=== PATIENT | female | born 1985 | race Two or more races ===

== ENCOUNTER 2024-01-04 22:19 | Emergency (ER) | payer MEDICAID, OTHER | END 2024-01-04 23:56 | disposition left against medical advice (07) | LOC: ER 22:19 | DX: R10.9 Unspecified abdominal pain (principal); Z53.21 Procedure and treatment not carried out due to patient leaving prior to being seen by health care provider ==

== ENCOUNTER 2024-01-07 21:54 | Emergency (ER) | payer MEDICAID ==
[~2024-01-07] VITALS: Ht 160 cm; Wt 63.0 kg
[2024-01-07 23:03] LABS: Basophils # (auto) 0.1 10 ^3/uL (0-0.2); Basophils % (auto) 0.8 % (0.0-2.0); Eosinophils # (auto) 0.1 10 ^3/uL (0-0.8); Eosinophils % (auto) 0.8 % (0.0-7.0); Hematocrit 43.2 % (36.0-46.0); Hemoglobin 14.5 g/dL (12.2-16.2); Lymphocytes # (auto) 2.8 10 ^3/uL (0.4-5.4); Mean Corpuscular Hemoglobin 30.3 pg (28.0-32.0); Mean Corpuscular Hgb Conc. 33.6 g/dL (32.0-36.0); Mean Corpuscular Volume 90.1 fL (80.0-100.0); Monocytes # (auto) 0.4 10 ^3/uL (0-1.3); Monocytes % (auto) 5.4 % (0.0-12.0); Neutrophils # (auto) 4.3 10 ^3/uL (1.6-8.6); Nucleated Red Blood Cells % 0.2 %; Red Cell Distribution Width 13.6 % (11.8-14.3); White Blood Cell 7.7 10^3/uL (4.4-10.8)
[2024-01-08] MEDS: MORPHINE SULFATE 4 MG/ML SYR/VIAL ONE (00:24)
[2024-01-08] MEDS: MORPHINE SULFATE INJ 2 MG/ml SYRG IM ONE (00:30)
[2024-01-08] MEDS: LIDOCAINE VISCOUS 2% 15ML UD ONE (00:30)
[2024-01-08] MEDS: MAALOX PLUS or MAALOX 30 ML ONE (00:30)
[2024-01-08] MEDS: DONNATAL 5ml ORAL Elix (BELLADONNA ALK-PHENOBARB) ONE (00:30)
[2024-01-08] MEDS: MAALOX PLUS or MAALOX 30 ML PO ONE (00:35)
[2024-01-08] MEDS: DONNATAL 5ml ORAL Elix (BELLADONNA ALK-PHENOBARB) PO ONE (00:35)
[2024-01-08] MEDS: LIDOCAINE VISCOUS 2% 15ML UD PO ONE (00:35)
[2024-01-08 01:04] LABS: Alanine Aminotransferase 910 U/L (7-40); Albumin 4.9 g/dL (3.2-4.8); Alkaline Phosphatase 222 U/L (46-116); Anion Gap 10 (5-15); Aspartate Aminotransferase 1122 U/L (13-40); BUN/Creatinine Ratio 10.3 (10.0-20.0); Bilirubin, Total 1.8 mg/dL (0.2-1.0); Blood Urea Nitrogen 9 mg/dL (9-23); Calcium 10.4 mg/dL (8.7-10.4); Carbon Dioxide 26 mmol/L (20-30); Chloride 102 mmol/L (98-107); Glucose 117 mg/dL (74-106); Lipase 53 U/L (12-53); Potassium 3.7 mmol/L (3.5-5.1); Sodium 138 mmol/L (136-145); Total Protein 7.9 g/dL (5.7-8.2)
[2024-01-08 01:30] VITALS: PULSE 87; RESP 17; O2SAT 94
[2024-01-08] MEDS: cefTRIAXone 1GM/50ML D5W 50 ML IV ONE (01:52)
[2024-01-08 02:08] LABS: Urine Bacteria MANY /hpf (None Seen); Urine Blood Negative /uL (Negative); Urine Clarity Clear (Clear); Urine Color Yellow (Yellow); Urine Protein, UAD Negative (Negative); Urine Specific Gravity 1.007 (1.001-1.035); Urine Urobilinogen 4 mg/dL (Negative); Urine WBC 1 /hpf (0 - 5); Urine pH 7.5 (5.0-9.0)
[2024-01-08] MEDS: metroNIDAZOLE 500MG/100ML 100 ML IV ONE (02:43)
[2024-01-08 04:45] VITALS: BP 104/67; PULSE 87; RESP 17; TEMP 97.9; O2SAT 94
== END 2024-01-08 05:07 | disposition short-term general hospital (02) ==
LOC: ER 21:54
DX: K80.51 Calculus of bile duct without cholangitis or cholecystitis with obstruction (principal); Z90.49 Acquired absence of other specified parts of digestive tract
CPT/HCPCS: 36415; 74176; 76705; 80053; 81001; 83690; 85025; 96365; 96367; 96372; 99285; J0696; J2270; J3490

== ENCOUNTER 2025-05-08 20:51 | Inpatient (IN) | payer MEDICAID ==
[~2025-05-08] VITALS: Ht 165.1 cm; Wt 72.4 kg
[2025-05-08 21:41] LABS: Hematocrit 43.5 % (36.0-46.0); Hemoglobin 15.1 g/dL (12.2-16.2); Mean Corpuscular Hemoglobin 30.7 pg (28.0-32.0); Mean Corpuscular Volume 88.5 fL (80.0-100.0); Nucleated Red Blood Cells % 0.0 %
[2025-05-08 21:45] LABS: Chloride 103 mmol/L (98-107); Potassium 3.5 mmol/L (3.5-5.1); Sodium 140 mmol/L (136-145)
[2025-05-08 21:46] LABS: Anion Gap 10 (5-15); Calcium 9.7 mg/dL (8.7-10.4); Carbon Dioxide 27 mmol/L (20-31)
[2025-05-08 21:51] LABS: BUN/Creatinine Ratio 8.6 (10.0-20.0); Glucose 103 mg/dL (74-106)
[2025-05-08 21:52] LABS: Blood Urea Nitrogen 6 mg/dL (9-23)
--- NOTE | 2025-05-08 22:20 | ED.PDOC ---
History of Present Illness HPI Comments 40 y/o Algerian speaking F, with a history of cholelithiasis s/p cholecystectomy, presents with spouse for c/c of nonradiating, RUQ abdominal pain. Patient reports on progressively worsening symptoms following initial, unprovoked and atraumatic onset 2 hours ago. No reported modifiers. No recent previous ailments, sick contact, spoiled food consumption, or further associated symptoms. Denial of any nausea, vomiting, diarrhea, fever, chills, or further associated symptoms. Chief Complaint: Abdominal Pain Time Seen by MD: 21:00 Reviewed Notes: Nurses Notes, Medications, Allergies Allergies: Coded Allergies: NO KNOWN ALLERGIES (Unverified , 01/07/24) Information Source: Patient Mode of Arrival: Ambulatory Severity: Moderate Timing: Hours Duration: Since onset Prehospital treatment: None Past Medical History PAST MEDICAL HISTORY: Gallstones Surgical History: Cholecystectomy Social History Smoker: Non-Smoker Alcohol: Denies ETOH Use Drugs: Denies Drug Use Lives In: Home All Other Systems: Reviewed and Negative (Comprehensive systems review obtained and negative except for what is stated in the HPI.) Physical Exam General Appearance: Moderate Distress HEENT: Normal ENT Inspection, Pharynx Normal, TMs Normal Neck: Full Range of Motion, Non-Tender, Normal, Normal Inspection Respiratory: Chest Non-Tender, Lungs Clear, No Accessory Muscle Use, No Respiratory Distress, Normal Breath Sounds Cardiovascular: No Edema, No JVD, No Murmur, No Gallop, Normal Peripheral Pulses, Regular Rate/Rhythm Breast Exam: Deferred Gastrointestinal: No Organomegaly, Non Tender, No Pulsatile Mass, Normal Bowel Sounds, Soft Genitalia: Deferred Pelvic: Deferred Rectal: Deferred Extremities: No calf tenderness, Normal capillary refill, Normal inspection, Normal range of motion, Non-tender, No pedal edema Musculoskeletal : Apperance: Normal Neurologic: Alert, manager search II-XII nml as Tested, No Motor Deficits, Normal Affect, Normal Mood, No Sensory Deficits Cerebellar Function: Normal Reflexes: Normal Skin: Dry, Normal Color, Warm Peripheral Pulses: 3+ Radial (R), 3+ Radial (L) Lymphatic: No Adenopathy Was a procedure done? Was a procedure done?: No Differential Dx Considerations may include: cholelithiasis, gastritis, gastroenteritis, GERD, viral syndrome, spoiled food, , among others X-Ray, Labs, Meds, VS Vital Signs Date Time Temp Pulse Resp B/P (MAP) Pulse Ox O2 Delivery O2 Flow Rate FiO2 05/08/25 23:01 97.6 111 20 116/85 (95) 97 97.6 05/08/25 23:01 111 20 97 Room Air 05/08/25 20:51 97.0 112 18 126/92 100 97.0 Lab Test 05/08/25 21:15 Range/Units White Blood Count 16.2 H 4.4-10.8 10^3/uL Red Blood Count 4.92 4.0-5.20 10^6/uL Hemoglobin 15.1 12.2-16.2 g/dL Hematocrit 43.5 36.0-46.0 % Mean Corpuscular Volume 88.5 80.0-100.0 fL Mean Corpuscular Hemoglobin 30.7 28.0-32.0 pg Mean Corpuscular Hemoglobin Concent 34.7 32.0-36.0 g/dL Red Cell Distribution Width 12.9 11.8-14.3 % Platelet Count 371 140-450 10^3/uL Mean Platelet Volume 7.3 6.9-10.8 fL Neutrophils (%) (Auto) 77.6 37.0-80.0 % Lymphocytes (%) (Auto) 16.3 10.0-50.0 % Monocytes (%) (Auto) 5.6 0.0-12.0 % Eosinophils (%) (Auto) 0.2 0.0-7.0 % Basophils (%) (Auto) 0.3 0.0-2.0 % Neutrophils # (Auto) 12.6 H 1.6-8.6 10 ^3/uL Lymphocytes # (Auto) 2.6 0.4-5.4 10 ^3/uL Monocytes # (Auto) 0.9 0-1.3 10 ^3/uL Eosinophils # (Auto) 0 0-0.8 10 ^3/uL Basophils # (Auto) 0 0-0.2 10 ^3/uL Nucleated Red Blood Cells 0.0 % Sodium Level 140 136-145 mmol/L Potassium Level 3.5 3.5-5.1 mmol/L Chloride Level 103 98-107 mmol/L Carbon Dioxide Level 27 20-31 mmol/L Anion Gap 10 5-15 Blood Urea Nitrogen 6 L 9-23 mg/dL Creatinine 0.70 0.550-1.02 mg/dL Glomerular Filtration Rate Calc 113 >90 mL/min BUN/Creatinine Ratio 8.6 L 10.0-20.0 Serum Glucose 103 74-106 mg/dL Calcium Level 9.7 8.7-10.4 mg/dL Current Medications Medications (Trade) Dose Ordered Sig/Matthew Route Start Time Stop Time Status Last Admin Sodium Chloride 1,000 ml @ 1,000 mls/hr Q1H ONCE IV 05/08/25 22:45 05/08/25 23:44 DC 05/08/25 22:45 [place] [id number] Ph: [phone] DIAGNOSTIC IMAGING Diagnostic Imaging Report : [id number] Signed PATIENT: JESI DELAROSA ACCT: [id number] UNIT: [id number] : 1985 [facility] AGE / SEX: 40 / F ADM STATUS: ADM IN SERVICE 33 ORDERING PHYSICIAN: BECKA KURTZ MD PROCEDURE(s): ABPL - CT AB PEL WO CON-NO ORAL OR IV REASON: colitis ORDER NUMBER(s): [id number], ACCESSION NUMBER(s): [id number] Exam: CT CT AB PEL WO CON-NO ORAL OR IV History: colitis Comparison Study: CT CT AB PEL WO CON-NO ORAL OR IV on DOS: 01/07/24 Technique: Multidetector spiral CT of the abdomen was performed from lung bases to pubic symphysis. Imaging was performed without IV contrast. Axial, coronal and sagittal multiplanar reformats were obtained from the axial data set by the technologist. Radiation Dose : 1. Abdomen/Pelvis: CTDIvol 8.34 mGy, DLP 513.88 mGy*cm. Findings: Evaluation of solid organs is limited due to lack of intravenous contrast use. Lower Chest: No acute findings. Liver: Diffuse hypoattenuation. Gallbladder and Biliary Tree: Cholecystectomy changes. Pancreas: Unremarkable. Spleen: Unremarkable. Adrenal Glands: Unremarkable. Kidneys/Ureters: No urinary stone or obstruction. Bladder: Grossly unremarkable for degree of distention. Pelvic Organs: Unremarkable Bowel: Normal caliber without wall thickening. No evidence of appendicitis. Vasculature: Unremarkable. Lymphadenopathy: No obvious adenopathy. Peritoneum: No ascites, free air, or fluid collection. Abdominal Wall: Abdominoplasty postsurgical change. Partially imaged breast implants. Bilateral flank injection granulomas. Musculoskeletal: No acute findings. Mild degenerative change of the spine. IMPRESSION: 1. No acute abdominopelvic abnormality, evidence of urinary stone or obstruction. 2. Hepatic steatosis. Radiation optimization: All CT scans at this facility use at least one of these dose optimization techniques: automated exposure control mA and/or kV adjus tment per patient size (includes targeted exams where dose is matched to clinical indication) or iterative reconstruction. ATED BY: ALIZA CARTER MD DICTATED DATE/TIME: 05/09/2525 SIGNED BY: ALIZA CARTER MD SIGNED DATE/TIME: 05/09/2525 CC: Patient alert. Came in because of abdominal pain. Vitals stable. Answering questions. Abdomen is soft tender on deep palpation. WBC elevated. Hemoglobin within normal limits. Tachycardia. No leg swelling. No shortness a breath. Explained to the patient. Continue monitoring. Time of 1ST Reevaluation: 21:30 Reevaluation 1ST: Unchanged Patient Education/Counseling: Diagnosis, Treatment Family Education/Counseling: Diagnosis, Treatment SEPSIS Sepsis Screen Date sepsis recognized/suspect: May 08, 2025 Time Sepsis recognized/suspect: 2053 Recent Procedure: No On Antibiotic Therapy: No Respiratory Rate >20: No Heart Rate >90: Yes Temp<36 C (96.8 F) or >38.3 C: No SBP <90 or MAP <65 mmHG: No New Acute Mental Status Change: No Is the patient on CPAP, BIPAP,: No Physician Orders Urinalysis (05/08/25 21:06) Ct Ab Pel Wo Con-No Oral Or Iv (05/08/25 22:34) Vital Signs Date Time Temp Pulse Resp B/P (MAP) Pulse Ox O2 Delivery O2 Flow Rate FiO2 05/08/25 23:01 97.6 111 20 116/85 (95) 97 97.6 05/08/25 23:01 111 20 97 Room Air 05/08/25 20:51 97.0 112 18 126/92 100 97.0 Laboratory Tests Test 05/08/25 21:15 White Blood Count 16.2 10^3/uL (4.4-10.8) H Medications Medications Dose Ordered Sig/Matthew Route Start Time Stop Time Status Last Admin Dose Admin Sodium Chloride 1,000 ml @ 1,000 mls/hr Q1H ONCE IV 05/08/25 22:45 05/08/25 23:44 DC 05/08/25 22:45 Departure 1 Departure Time of Disposition: 22:33 Impression: Primary Impression: Acute abdominal pain Disposition: ADMITTED INPATIENT Admit to: Med Surg Condition: Guarded Critical Care Note Critical Care Time?: No Stability Stability form required: No Heart Score Heart Score: Heart Score Response (Comments) Value History N/A 0 EKG N/A 0 Age N/A 0 Risk Factors N/A 0 Troponin N/A 0 Total 0 I personally scribed for BECKA KURTZ MD ([email or web address]) on 05/08/25 at 22:19. Electronically submitted by Soham Harrell ([email or web address]). I personally scribed for BECKA KURTZ MD ([email or web address]) on 05/09/25 at 02:12. Electronically submitted by Soham Harrell ([email or web address]). I personally scribed for BECKA KURTZ MD ([email or web address]) on 05/09/25 at 02:12. Electronically submitted by Soham Harrell ([email or web address]). BECKA KURTZ MD May 08, 2025 22:19
[2025-05-08] MEDS: SODIUM CHLORIDE 0.9% 1,000 ML IV ONE (22:45)
[2025-05-09] MEDS ORDERED: ACETAMINOPHEN 325 MG TAB PO PRN
[2025-05-09] MEDS ORDERED: ONDANSETRON HCL 4 MG/2 ML VIAL IV PRN
[2025-05-09] MEDS ORDERED: NITROGLYCERIN 0.4 MG SL TAB SL PRN
[2025-05-09] MEDS ORDERED: PANTOPRAZOLE 40 MG/10 ML VIAL INJ IV ONE
[2025-05-09] MEDS ORDERED: DOCUSATE SOD 100 MG CAP PO PRN
[2025-05-09] MEDS ORDERED: MORPHINE SULFATE INJ 2 MG/ml SYRG IV PRN ×2
--- NOTE | 2025-05-09 00:01 | DVHHP2 ---
History of Present Illness Reason for Visit: Acute abdominal pain History of Present Illness The patient is a 40-year-old female with past medical history of gallstones who presented to [facility] ED with complaint of abdominal pain for the past 3 days. Patient reports she has been experiencing right upper quadrant abdominal pain, rating 8/10 numeric scale, nonradiating, getting worse that prompted this visit. Patient was seen and evaluated in the ED, laboratory data shows WBC 16.2, platelets 371, sodium 140, potassium 3.5, BUN 6, creatinine 0.70, glucose 103, calcium 9.7, blood pressure 116/85, heart rate 112, temperature 97.6 F, O2 saturation 97% on room air. Abdomen/pelvis CT showed no acute abdominopelvic abnormality, no evidence of urinary stone or obstruction; hepatic steatosis. Please see medication orders section in the computer. On my assessment, patient denied chest pain, no headache, no shortness of breaths, no abdominal pain at this moment, no diarrhea, no nausea, vomiting, no fever, no chills. Patient was admitted for further evaluation and medical management. Past Medical History Gallstones Past Surgical History Cholecystectomy Family History Reviewed, noncontributory to the management of this case. Past Social History The patient lives at home, denies smoking, alcohol or illicit drugs abuse. Review of Systems Constitutional: Yes: Weakness; No: Fever, Chills, Sweats, Malaise, Other Eyes: No: Pain, Vision change, Conjunctivae inflammation, Eyelid inflammation, Other, Redness ENT: No: Ear pain, Ear discharge, Nose pain, Nose discharge, Nose congestion, Mouth pain, Mouth swelling, Throat pain, Throat swelling, Other Respiratory: No: Cough, Dry, Shortness of breath, SOB with excertion, Wheezing, Hemoptysis, Pleuritic Pain, Sputum, Wheezing, Other Cardiovascular: No: Chest Pain, Palpitations, Orthopnea, Paroxysmal Noc. Dyspnea, Edema, Lt Headedness, Other Gastrointestinal: Abdominal Pain; No: Nausea, Vomiting, Diarrhea, Constipation, Melena, Hematochezia, Other Genitourinary: No Dysuria, No Frequency, No Incontinence, No Hematuria, No Retention, No Other Musculoskeletal: No: other, neck pain, shoulder pain, arm pain, back pain, hand pain, leg pain, foot pain Skin: No: Rash, Lesions, Jaundice, Bruising, Other Neurological: No: Weakness, Numbness, Incoordination, Change in speech, Confusion, Seizures, Other Allergies: Coded Allergies: NO KNOWN ALLERGIES (Unverified , 01/07/24) Exam Vital Signs Vital Signs Date Time Temp Pulse Resp B/P (MAP) Pulse Ox O2 Delivery O2 Flow Rate FiO2 05/08/25 23:01 97.6 111 20 116/85 (95) 97 97.6 05/08/25 23:01 Room Air General Appearance: Alert, Oriented X3, Cooperative, No acute distress HEENT: Atraumatic, PERRLA, EOMI, Mucous membr. moist/pink Respiratory: Clear to auscultation, Normal air movement Cardiovascular: Regular rate, Normal S1, Normal S2, No murmurs Abdominal: Normal bowel sounds, Soft, No hepatospenomegaly, No masses, Other (Reports tenderness) Extremities: No clubbing, No cyanosis, No edema, Normal pulses, No tenderness/swelling Skin: No rashes, No breakdown, No significant lesion Neuro: Normal gait, Normal speech, Strength at 5/5 X4 ext, Normal tone, Sensation intact, Cranial nerves 3-12 NL, Reflexes 2+ Psych/Mental Status: Mental status NL, Mood NL Labs/Xrays Labs Test 05/08/25 21:15 Range/Units White Blood Count 16.2 H 4.4-10.8 10^3/uL Red Blood Count 4.92 4.0-5.20 10^6/uL Hemoglobin 15.1 12.2-16.2 g/dL Hematocrit 43.5 36.0-46.0 % Mean Corpuscular Volume 88.5 80.0-100.0 fL Mean Corpuscular Hemoglobin 30.7 28.0-32.0 pg Mean Corpuscular Hemoglobin Concent 34.7 32.0-36.0 g/dL Red Cell Distribution Width 12.9 11.8-14.3 % Platelet Count 371 140-450 10^3/uL Mean Platelet Volume 7.3 6.9-10.8 fL Neutrophils (%) (Auto) 77.6 37.0-80.0 % Lymphocytes (%) (Auto) 16.3 10.0-50.0 % Monocytes (%) (Auto) 5.6 0.0-12.0 % Eosinophils (%) (Auto) 0.2 0.0-7.0 % Basophils (%) (Auto) 0.3 0.0-2.0 % Neutrophils # (Auto) 12.6 H 1.6-8.6 10 ^3/uL Lymphocytes # (Auto) 2.6 0.4-5.4 10 ^3/uL Monocytes # (Auto) 0.9 0-1.3 10 ^3/uL Eosinophils # (Auto) 0 0-0.8 10 ^3/uL Basophils # (Auto) 0 0-0.2 10 ^3/uL Nucleated Red Blood Cells 0.0 % Sodium Level 140 136-145 mmol/L Potassium Level 3.5 3.5-5.1 mmol/L Chloride Level 103 98-107 mmol/L Carbon Dioxide Level 27 20-31 mmol/L Anion Gap 10 5-15 Blood Urea Nitrogen 6 L 9-23 mg/dL Creatinine 0.70 0.550-1.02 mg/dL Glomerular Filtration Rate Calc 113 >90 mL/min BUN/Creatinine Ratio 8.6 L 10.0-20.0 Serum Glucose 103 74-106 mg/dL Calcium Level 9.7 8.7-10.4 mg/dL PATIENT: JESI DELAROSA ACCT: [id number] UNIT: [id number] : 1985 LOC: OVERFLOW ROOM / BED: [address] [place] [address] / A AGE / SEX: 40 / F ADM STATUS: ADM IN SERVICE 2234 ORDERING PHYSICIAN: BECKA KURTZ MD PROCEDURE(s): ABPL - CT AB PEL WO CON-NO ORAL OR IV REASON: colitis ORDER NUMBER(s): [id number], ACCESSION NUMBER(s): [id number] Exam: CT CT AB PEL WO CON-NO ORAL OR IV History: colitis Comparison Study: CT CT AB PEL WO CON-NO ORAL OR IV on DOS: 01/07/24 Technique: Multidetector spiral CT of the abdomen was performed from lung bases to pubic symphysis. Imaging was performed without IV contrast. Axial, coronal and sagittal multiplanar reformats were obtained from the axial data set by the technologist. Radiation Dose: 1. Abdomen/Pelvis: CTDIvol 8.34 mGy, DLP 513.88 mGy*cm. Findings: Evaluation of solid organs is limited due to lack of intravenous contrast use. Lower Chest: No acute findings. Liver: Diffuse hypoattenuation. Gallbladder and Biliary Tree: Cholecystectomy changes. Pancreas: Unremarkable. Spleen: Unremarkable. Adrenal Glands: Unremarkable. Kidneys/Ureters: No urinary stone or obstruction. Bladder: Grossly unremarkable for degree of distention. Pelvic Organs: Unremarkable Bowel: Normal caliber without wall thickening. No evidence of appendicitis. Vasculature: Unremarkable. Lymphadenopathy: No obvious adenopathy. Peritoneum: No ascites, free air, or fluid collection. Abdominal Wall: Abdominoplasty postsurgical change. Partially imaged breast implants. Bilateral flank injection granulomas. Musculoskeletal: No acute findings. Mild degenerative change of the spine. IMPRESSION: 1. No acute abdominopelvic abnormality, evidence of urinary stone or obstruction. 2. Hepatic steatosis. SEPSIS Sepsis Screen Date sepsis recognized/suspect: May 08, 2025 Time Sepsis recognized/suspect: 2302 Recent Procedure: No On Antibiotic Therapy: No Respiratory Rate >20: No Heart Rate >90: Yes Temp<36 C (96.8 F) or >38.3 C: No SBP <90 or MAP <65 mmHG: No New Acute Mental Status Change: No Is the patient on CPAP, BIPAP,: No Physician Orders Urinalysis (05/08/25 21:06) Ct Ab Pel Wo Con-No Oral Or Iv (05/08/25 22:34) Vital Signs Date Time Temp Pulse Resp B/P (MAP) Pulse Ox O2 Delivery O2 Flow Rate FiO2 05/08/25 23:01 97.6 111 20 116/85 (95) 97 97.6 05/08/25 23:01 111 20 97 Room Air 05/08/25 20:51 97.0 112 18 126/92 100 97.0 Laboratory Tests Test 05/08/25 21:15 White Blood Count 16.2 10^3/uL (4.4-10.8) H Medications Medications Dose Ordered Sig/Matthew Route Start Time Stop Time Status Last Admin Dose Admin Sodium Chloride 1,000 ml @ 1,000 mls/hr Q1H ONCE IV 05/08/25 22:45 05/08/25 23:44 DC 05/08/25 22:45 1,000 MLS/HR Assessment/Plan Assessment/Plan Acute abdominal pain Leukocytosis, unspecified Generalized weakness Plan 1. Admit to med surge unit 2. Breathing treatment 3. Pain control management 4. IV antibiotic management 5. Management of fluids and electrolytes 6. Consultation for hospitalist 7. Diagnostic test abdomen/pelvis CT 8. DVT prophylaxis on SCDs 9. Repeat labs CBC, CMP in a.m. 10. Home medication reviewed and reconciled 11. Continue with current medical management 12. Treatment plan discussed with patient and RN. Patient verbalized understanding. Plan discussed with: Patient, Other (RN) Problem List: (1) Acute abdominal pain (2) Leukocytosis, unspecified (3) Generalized weakness Date of Service: May 09, 2025 Billing Provider: ROXANNA GOLDBERG DNP Common Visit Codes: [id number] INP/OBS CARE (HIGH) ROXANNA GOLDBERG DNP May 09, 2025 00:01
--- NOTE | 2025-05-09 00:28 | DVH ---
8 Exam: CT CT AB PEL WO CON-NO ORAL OR IV History: colitis Comparison Study: CT CT AB PEL WO CON-NO ORAL OR IV on DOS: 01/07/24 Technique: Multidetector spiral CT of the abdomen was performed from lung bases to pubic symphysis. I maging was performed without IV contrast. Axial, coronal and sagittal multiplanar reformats were obta ined from the axial data set by the technologist. Radiation Dose : 1. Abdomen/Pelvis: CTDIvol 8.34 mGy, DLP 513.88 mGy*cm. Findings: Evaluation of solid organs is limited due to lack of intravenous contrast use. Lower Chest: No acute findings. Liver: Diffuse hypoattenuation. Gallbladder and Biliary Tree: Cholecystectomy changes. Pancreas: Unremarkable. Spleen: Unremarkable. Adrenal Glands: Unremarkable. Kidneys/Ureters: No urinary stone or obstruction. Bladder: Grossly unremarkable for degree of distention. Pelvic Organs: Unremarkable Bowel: Normal caliber without wall thickening. No evidence of appendicitis. Vasculature: Unremarkable. Lymphadenopathy: No obvious adenopathy. Peritoneum: No ascites, free air, or fluid collection. Abdominal Wall: Abdominoplasty postsurgical change. Partially imaged breast implants. Bilateral flan k injection granulomas. Musculoskeletal: No acute findings. Mild degenerative change of the spine. IMPRESSION: 1. No acute abdominopelvic abnormality, evidence of urinary stone or obstruction. 2. Hepatic steatosis. Radiation optimization: All CT scans at this facility use at least one of these dose optimization evens hniques: automated exposure control mA and/or kV adjustment per patient size (includes targeted exam s where dose is matched to clinical indication) or iterative reconstruction.
[2025-05-09 01:45] VITALS: BP 125/89; PULSE 100; RESP 18; TEMP 97.7; O2SAT 99
[2025-05-09] MEDS: HYDROcodone-ACET 5/325MG TAB PO PRN (02:17)
[2025-05-09] MEDS: PANTOPRAZOLE 40 MG/10 ML VIAL INJ IV ONE (02:18)
[2025-05-09] MEDS: SODIUM CHLORIDE 0.9% 1,000 ML IV SCH (02:18)
[2025-05-09 05:00] VITALS: BP 103/71; PULSE 79; RESP 17; TEMP 98.2; O2SAT 100
[2025-05-09 08:52] VITALS: BP 103/66; PULSE 76; RESP 14; TEMP 98; O2SAT 97
[2025-05-09] MEDS: PANTOPRAZOLE 40 MG/10 ML VIAL INJ IV SCH (09:51)
[2025-05-09 09:55] LABS: Hematocrit 40.1 % (36.0-46.0); Hemoglobin 13.8 g/dL (12.2-16.2); Mean Corpuscular Hemoglobin 30.6 pg (28.0-32.0); Mean Corpuscular Volume 88.7 fL (80.0-100.0); Nucleated Red Blood Cells % 0.0 %
[2025-05-09 10:10] LABS: Albumin 4.5 g/dL (3.2-4.8); Anion Gap 11 (5-15); BUN/Creatinine Ratio 12.5 (10.0-20.0); Bilirubin, Total 1.0 mg/dL (0.2-1.0); Calcium 8.8 mg/dL (8.7-10.4); Carbon Dioxide 25 mmol/L (20-31); Chloride 106 mmol/L (98-107); Glucose 88 mg/dL (74-106); Sodium 142 mmol/L (136-145); Total Protein 7.3 g/dL (5.7-8.2)
[2025-05-09 10:11] LABS: Alanine Aminotransferase 459 U/L (7-40); Alkaline Phosphatase 146 U/L (46-116); Blood Urea Nitrogen 8 mg/dL (9-23); Potassium 3.3 mmol/L (3.5-5.1)
[2025-05-09 13:00] VITALS: BP 97/60; PULSE 74; RESP 16; TEMP 98.6; O2SAT 99
--- NOTE | 2025-05-09 15:31 | DVHPN2 ---
Subjective I am assuming the care of the patient from today onwards who was under the care of the hospitalist team. Patient is currently denies any right upper quadrant pain. Changes from previous H/P or p: No Changes Eyes: No Pain, No Vision change, No Conjunctivae inflammation, No Eyelid inflammation, No Other, No Redness ENT: No Ear pain, No Ear discharge, No Nose pain, No Nose discharge, No Nose congestion, No Mouth pain, No Mouth swelling, No Throat pain, No Throat swelling, No Other Cardiovascular: No Chest Pain, No Palpitations, No Orthopnea, No Paroxysmal Noc. Dyspnea, No Edema, No Lt Headedness, No Other Respiratory: No Cough, No Dry, No Shortness of breath, No SOB with excertion, No Wheezing, No Hemoptysis, No Pleuritic Pain, No Sputum, No Other Gastrointestinal: No Nausea, No Vomiting; Abdominal Pain; No Diarrhea, No Constipation, No Melena, No Hematochezia, No Other Genitourinary: No Dysuria, No Frequency, No Incontinence, No Hematuria, No Retention, No Other Musculoskeletal: No other, No neck pain, No shoulder pain, No arm pain, No back pain, No hand pain, No leg pain, No foot pain Skin: No Rash, No Lesions, No Jaundice, No Bruising, No Other Objective Vitals Vital Signs Date Time Temp Pulse Resp B/P (MAP) Pulse Ox O2 Delivery O2 Flow Rate FiO2 05/09/25 08:52 98.0 76 14 103/66 (78) 97 98.0 05/09/25 01:49 Room Air* 0 21 Intake/Output Intake and Output 05/09/25 07:00 Intake Total 490 ml Balance 490 ml Intake Oral 340 ml IV Total 150 ml Exam HEENT pupils are reactive Neck is supple CV is S1-S2 regular rate and rhythm Respiratory diminished breath sounds bases GI positive bowel sound , soft nondistended nontender no guarding no rigidity Extremity no edema [employer]OVEMENT [employer] no motor deficit Medications Current Medications Medications Dose Ordered Sig/Matthew Route Start Time Stop Time Status Last Admin Dose Admin Sodium Chloride 1,000 ml @ 60 mls/hr [id number] IV 05/09/25 00:00 05/09/25 02:18 60 MLS/HR Acetaminophen/ Hydrocodone Bitart 1 tab Q4HP PRN PO 05/09/25 00:00 05/09/25 02:17 1 TAB Ondansetron HCl 4 mg Q4HP PRN IV 05/09/25 00:00 Docusate Sodium 100 mg BIDPRN PRN PO 05/09/25 00:00 Acetaminophen 650 mg Q6HP PRN PO 05/09/25 00:00 Morphine Sulfate 2 mg Q4HPRN PRN IV 05/09/25 00:00 Nitroglycerin 0.4 mg Q5MINP PRN SL 05/09/25 00:00 Morphine Sulfate 2 mg Q30M PRN IV 05/09/25 00:00 Pantoprazole Sodium 40 mg DAILY IV 05/09/25 10:00 05/09/25 09:51 40 MG Metronidazole 100 ml @ 100 mls/hr Q8HR IV 05/09/25 14:00 05/09/25 14:03 100 MLS/HR Ceftriaxone Sodium 50 ml @ 100 mls/hr DAILY@09 IV 05/10/25 09:00 Laboratory Results Laboratory Tests 05/09/25 08:58 Chemistry Test 05/08/25 21:15 05/09/25 08:58 Calcium Level 9.7 mg/dL (8.7-10.4) 8.8 mg/dL (8.7-10.4) Albumin 4.5 g/dL (3.2-4.8) Total Protein 7.3 g/dL (5.7-8.2) LFT Test 05/09/25 08:58 Alanine Aminotransferase (ALT) 459 U/L (7-40) H Alkaline Phosphatase 146 U/L (46-116) H Aspartate Amino Transferase (AST) 317 U/L (13-40) H Total Bilirubin 1.0 mg/dL (0.2-1.0) Assessment/Plan Assessment/Plan 40-year-old female with a no significant past medical history who has been taking tirzepatide for weight loss presented to the hospital with the abdominal pain nausea and vomiting found to have 1. Abdominal pain with the nausea and vomiting 2. Transaminitis 3. Leukocytosis likely reactive -repeat liver function tests, ultrasound liver, discharge plan once patient is tolerating diet. Plan discussed with: Patient, Spouse My Orders Orders - COURTNEY BAUTISTA MD Procedure Category Date Status Time Complete Blood Count LAB 05/10/25 Verified 06:00 Magnesium LAB 05/10/25 Verified 06:00 Comprehensive LAB 05/10/25 Verified Metabolic Panel 04:00 Date of Service: May 09, 2025 Billing Provider: COURTNEY BAUTISTA MD Common Visit Codes: [id number] INP/OBS CARE(MOD) COURTNEY BAUTISTA MD May 09, 2025 15:31
[2025-05-09 17:00] VITALS: BP 100/68; PULSE 68; RESP 16; TEMP 98.2; O2SAT 99
--- NOTE | 2025-05-09 20:08 | DVH ---
Procedure: US LIVER Study Date and Requested Time: 05/09/2025 04:02 PM History: RUQ pain Comparison: US ABDOMEN LIMITED on DOS: 01/08/24 Technique: Multiple high resolution esteves-scale images obtained of the right upper quadrant of the abd omen with color Doppler for evaluation of blood flow and vascularity as indicated. Findings: Liver normal in size, measuring 16 cm in length, with increased echogenicity and normal contours. No evidence of focal hepatic lesions, intrahepatic or extrahepatic ductal dilatation. Common bile duct m easures 0.7 cm in diameter. Status post cholecystectomy Pancreas is obscured by bowel gas Right kidney measures 11.5 cm in length, with normal contours, echotexture, and cortical thickness. N o evidence of hydronephrosis, calculi, cystic or solid renal lesions. Partially visualized inferior vena cava unremarkable. Impression: Hepatic steatosis. The pancreas is obscured by bowel gas. Status post cholecystectomy.
[2025-05-09 21:00] VITALS: BP 104/62; PULSE 66; RESP 16; TEMP 97.7; O2SAT 98
[2025-05-10 01:26] VITALS: BP 109/73; PULSE 70; RESP 17; TEMP 98.6; O2SAT 95
[2025-05-10 05:08] VITALS: BP 101/67; PULSE 64; RESP 17; TEMP 98.4; O2SAT 96
[2025-05-10 07:51] LABS: Hematocrit 38.5 % (36.0-46.0); Hemoglobin 13.4 g/dL (12.2-16.2); Mean Corpuscular Hemoglobin 31.0 pg (28.0-32.0); Mean Corpuscular Volume 89.1 fL (80.0-100.0); Nucleated Red Blood Cells % 0.1 %
[2025-05-10 08:07] LABS: Anion Gap 12 (5-15); BUN/Creatinine Ratio 9.7 (10.0-20.0); Calcium 8.7 mg/dL (8.7-10.4); Carbon Dioxide 20 mmol/L (20-31); Magnesium 2.3 mg/dL (1.6-2.6); Sodium 140 mmol/L (136-145); Total Protein 6.9 g/dL (5.7-8.2)
[2025-05-10 08:08] LABS: Albumin 4.2 g/dL (3.2-4.8); Bilirubin, Total 0.5 mg/dL (0.2-1.0)
[2025-05-10 08:11] LABS: Alanine Aminotransferase 292 U/L (7-40); Alkaline Phosphatase 119 U/L (46-116); Blood Urea Nitrogen 6 mg/dL (9-23); Chloride 108 mmol/L (98-107); Glucose 90 mg/dL (74-106); Potassium 3.5 mmol/L (3.5-5.1)
[2025-05-10 09:00] VITALS: BP 109/75; PULSE 75; RESP 21; TEMP 97.9; O2SAT 99
[2025-05-10 13:00] VITALS: BP 117/69; PULSE 69; RESP 20; TEMP 98.6; O2SAT 100
--- NOTE | 2025-05-10 14:14 | MEDREC ---
[facility] ASP Intervention Section I [facility] ASP Intervention: Review courses of therapy (Pt afebrile, CT abdomen/pelvis indicate no acute abdominopelvic abormality, leukocytosis resolved, may consider d/cing antibiotics if/when clinically appropriate.) SUHAIL GERMAIN [facility] RESIDENT May 10, 2025 14:14
--- NOTE | 2025-05-10 16:11 | DVHDS2 ---
Discharge Summary Date of Admission May 08, 2025 at 23:57 Date of Discharge: May 10, 2025 Labs/Diagnostic Data: Laboratory Results Test 05/10/25 07:22 White Blood Count 5.7 10^3/uL (4.4-10.8) Red Blood Count 4.33 10^6/uL (4.0-5.20) Hemoglobin 13.4 g/dL (12.2-16.2) Hematocrit 38.5 % (36.0-46.0) Mean Corpuscular Volume 89.1 fL (80.0-100.0) Mean Corpuscular Hemoglobin 31.0 pg (28.0-32.0) Mean Corpuscular Hemoglobin Concent 34.8 g/dL (32.0-36.0) Red Cell Distribution Width 13.3 % (11.8-14.3) Platelet Count 293 10^3/uL (140-450) Mean Platelet Volume 7.4 fL (6.9-10.8) Neutrophils (%) (Auto) 57.4 % (37.0-80.0) Lymphocytes (%) (Auto) 33.5 % (10.0-50.0) Monocytes (%) (Auto) 6.3 % (0.0-12.0) Eosinophils (%) (Auto) 2.3 % (0.0-7.0) Basophils (%) (Auto) 0.5 % (0.0-2.0) Neutrophils # (Auto) 3.3 10 ^3/uL (1.6-8.6) Lymphocytes # (Auto) 1.9 10 ^3/uL (0.4-5.4) Monocytes # (Auto) 0.4 10 ^3/uL (0-1.3) Eosinophils # (Auto) 0.1 10 ^3/uL (0-0.8) Basophils # (Auto) 0 10 ^3/uL (0-0.2) Nucleated Red Blood Cells 0.1 % Sodium Level 140 mmol/L (136-145) Potassium Level 3.5 mmol/L (3.5-5.1) Chloride Level 108 mmol/L (98-107) Carbon Dioxide Level 20 mmol/L (20-31) Anion Gap 12 (5-15) Blood Urea Nitrogen 6 mg/dL (9-23) Creatinine 0.62 mg/dL (0.550-1.02) Glomerular Filtration Rate Calc 117 mL/min (>90) BUN/Creatinine Ratio 9.7 (10.0-20.0) Serum Glucose 90 mg/dL (74-106) Calcium Level 8.7 mg/dL (8.7-10.4) Magnesium Level 2.3 mg/dL (1.6-2.6) Total Bilirubin 0.5 mg/dL (0.2-1.0) Aspartate Amino Transferase (AST) 93 U/L (13-40) Alanine Aminotransferase (ALT) 292 U/L (7-40) Alkaline Phosphatase 119 U/L (46-116) Total Protein 6.9 g/dL (5.7-8.2) Albumin 4.2 g/dL (3.2-4.8) Other Laboratory Tests 05/10/25 07:22 Brief Hx & Hospital Course: 40-year-old female with a no significant past medical history who has been taking tirzepatide for weight loss presented to the hospital with the abdominal pain nausea and vomiting found to have intractable abdominal pain with the nausea and vomiting. Patient does appetite were discontinued. Patient's liver function tests were checked which was elevated which came down. Patient's leukocytosis was likely reactive which also improved. Patient is currently being discharged under stable condition patient was recommended not to use Tizapetide diet for weight loss. Please return to ER if abdominal pain nausea and vomiting or any concern. Condition at Discharge: Stable Final Diagnosis/Problems List 40-year-old female with a no significant past medical history who has been taking tirzepatide for weight loss presented to the hospital with the abdominal pain nausea and vomiting found to have 1. Abdominal pain with the nausea and vomiting 2. Transaminitis 3. Leukocytosis likely reactive Discharge Disposition: Home SNF Discharge Will this Physician continue t: No Discharge Instruct/Medications Diet: Cardiac 2g Na,low cholest Activity: No Restrictions, As Tolerated Follow Up/Referral: Please follow up with the PCP with a repeat liver function tests in one week. Medications: Resume home medications. Please stopped taking Tizapetide Medication Profile: No Active Prescriptions or Reported Meds No Active Prescriptions or Reported Meds Discharge Statement: "Patient was advised to return to the ER or call 911 if any headaches, dizziness, shortness of breath, chest pain, abdominal pain, bleeding, fevers, or worsening of medical condition. Patient was counseled about treatment plan, medications, possible side effects, patientverbalized understanding. All questions were answered to the best of my ability. This discharge took greater then 30 minutes in planning, reviewing documentation, counseling the patient, and discussing with other team members." ASSESSMENT ASSESSMENT Assessment 40-year-old female with a no significant past medical history who has been taking tirzepatide for weight loss presented to the hospital with the abdominal pain nausea and vomiting found to have 1. Abdominal pain with the nausea and vomiting 2. Transaminitis 3. Leukocytosis likely reactive Date of Service: May 10, 2025 Billing Provider: COURTNEY BAUTISTA MD Common Visit Codes: 42843-EMD/OBS DISCH DAY >30min COURTNEY BAUTSITA MD May 10, 2025 16:11
[2025-05-10 16:30] VITALS: BP 100/70; PULSE 63; RESP 19; TEMP 98.6; O2SAT 99
[2025-05-10 16:59] VITALS: BP 100/70; PULSE 63; RESP 19; TEMP 37; O2SAT 99
== END 2025-05-10 18:15 | disposition home health service (06) ==
LOC: ER 20:51 → EAST 23:54 → OVERFLOW 23:57 → EAST 05-09 02:12
PROVIDERS: ADMIT Internal Medicine; ATTEND Internal Medicine
DX: K76.0 Fatty (change of) liver, not elsewhere classified (principal); D72.829 Elevated white blood cell count, unspecified; R74.01 Elevation of levels of liver transaminase levels; R11.2 Nausea with vomiting, unspecified; Z90.49 Acquired absence of other specified parts of digestive tract
CPT/HCPCS: 36415; 74176; 76705; 80048; 80053; 83735; 85025; 96360; G0378; J2470; J3490

== ENCOUNTER 2025-06-28 15:07 | Outpatient (CLI) | payer MEDICAID ==
[2025-06-28 15:55] LABS: Alanine Aminotransferase 36 U/L (7-40); Alkaline Phosphatase 87 U/L (46-116); Anion Gap 11 (5-15); BUN/Creatinine Ratio 9.9 (10.0-20.0); Calcium 9.5 mg/dL (8.7-10.4); Carbon Dioxide 27 mmol/L (20-31); Chloride 104 mmol/L (98-107); Glucose 87 mg/dL (74-106); Sodium 142 mmol/L (136-145); Total Protein 7.9 g/dL (5.7-8.2)
[2025-06-28 15:56] LABS: Bilirubin, Total 0.9 mg/dL (0.2-1.0)
[2025-06-28 16:01] LABS: Albumin 4.9 g/dL (3.2-4.8); Blood Urea Nitrogen 7 mg/dL (9-23); Lipase 58 U/L (12-53); Potassium 3.5 mmol/L (3.5-5.1)
== END 2025-06-28 17:00 | disposition home or self-care (01) ==
LOC: LAB 15:07
PROVIDERS: ATTEND Internal Medicine
DX: K76.0 Fatty (change of) liver, not elsewhere classified (principal); Z87.19 Personal history of other diseases of the digestive system
CPT/HCPCS: 36415; 80053; 83690